=== PATIENT | female | born 1985 | race Caucasian/White ===

== ENCOUNTER 2023-09-17 10:05 | Day surgery (SDC) | payer BC ==
[2023-09-15 09:57] VITALS: BMI 31.9
[2023-09-15 11:27] LABS: Hematocrit 42.8 % (34.9-44.5); Hemoglobin 14.6 g/dL (12.0-15.5); Mean Corpuscular HGB CONC 34.1 g/dL (32.0-36.0); Mean Corpuscular Hemoglobin 30.6 pg (27.0-33.0); Mean Corpuscular Volume 89.7 fL (81.6-98.3); Mean Platelet Volume 9.8 fL (7.4-10.4); Platelet Count 409 10x3/uL (150-450); Red Blood Cell (RBC) Count 4.77 10x6/uL (3.90-5.03); White Blood Cell (WBC) Count 7.4 10x3/uL (3.5-10.5)
[2023-09-15 11:46] LABS: BHCG - Serum Negative (NEGATIVE); Pregs Control Background? CLEAR/WHITE (CLR/WHITE); Pregs Control Bar Appear? YES (CONTROL BAR)
[2023-09-17] MEDS ORDERED: CeleCOXIB 100 MG CAP ONE (10:10)
[2023-09-17] MEDS ORDERED: Gabapentin 300 MG CAP ONE (10:11)
[2023-09-17] MEDS ORDERED: Famotidine/PF 20 mg/2ml Vial ONE (10:11)
[2023-09-17] MEDS ORDERED: Dexamethasone 20 MG/5 ML VIAL ONE (11:44)
[2023-09-17] MEDS ORDERED: Ondansetron PF 4 MG/2 ML Vial ONE (11:44)
[2023-09-17] MEDS ORDERED: PROPOFOL 20 ML ONE (11:44)
[2023-09-17] MEDS ORDERED: Midazolam HCl 2 mg/2 ml Vial ONE (11:44)
[2023-09-17] MEDS ORDERED: Fentanyl 250 MCG/5 ML VIAL ONE (11:44)
[2023-09-17] MEDS ORDERED: Glycopyrrolate 0.2 MG/ML 5 ML SYRINGE ONE (11:44)
[2023-09-17] MEDS ORDERED: Lidocaine 1% PF 5 ML VIAL ONE (11:44)
[2023-09-17] MEDS ORDERED: Rocuronium Bromide 10 MG/ML (10ML VIAL) ONE (11:44)
[2023-09-17] MEDS ORDERED: Ketorolac Tromethamine 30 MG (1 mL) VIAL ONE (11:45)
[2023-09-17] MEDS ORDERED: SUGAMMADEX SODIUM 200 MG/2 ML VIAL ONE (11:45)
[2023-09-17] MEDS ORDERED: EPINEPHrine 1 MG/ML VIAL ONE (12:26)
[2023-09-17] MEDS ORDERED: Bupivacaine PF 0.5% 30 ML VIAL ONE (12:26)
[2023-09-17] MEDS ORDERED: CEFAZOLIN 2 GM VIAL ONE (12:47)
[2023-09-17] MEDS ORDERED: HYDROcodone/Acetaminophen 5/325 mg Tablet ONE (16:21)
== END 2023-09-17 17:00 | disposition home or self-care (01) ==
LOC: CSHSDC 10:05
PROVIDERS: ATTEND Obstetrics & Gynecology
PROC: 0UT94ZZ Resection of Uterus, Percutaneous Endoscopic Approach (ICD-10-PCS; principal; 2023-09-17)
PROC: 0UT74ZZ Resection of Bilateral Fallopian Tubes, Percutaneous Endoscopic Approach (ICD-10-PCS; principal; 2023-09-17)
DX: N87.9 Dysplasia of cervix uteri, unspecified (principal); N72 Inflammatory disease of cervix uteri; N85.01 Benign endometrial hyperplasia; D25.9 Leiomyoma of uterus, unspecified; D28.2 Benign neoplasm of uterine tubes and ligaments; E78.5 Hyperlipidemia, unspecified; F41.9 Anxiety disorder, unspecified; G43.009 Migraine without aura, not intractable, without status migrainosus; R19.2 Visible peristalsis; Z79.899 Other long term (current) drug therapy
CPT/HCPCS: 84703; 85027; 86850; 86900; 86901; 88307; J0171; J0665; J1100; J1885; J2250; J2405; J2704; J3010; S0028

== ENCOUNTER 2024-03-11 08:35 | Outpatient (CLI) | payer BC | END 2024-03-11 08:36 | disposition home or self-care (01) | LOC: CSHSLEEP 08:35 | PROVIDERS: ATTEND Internal Medicine Sleep Medicine | DX: G47.19 Other hypersomnia (principal); R53.83 Other fatigue; G47.10 Hypersomnia, unspecified | CPT/HCPCS: 95810 ==